=== PATIENT | female | born 1970 | race Caucasian/White ===

== ENCOUNTER → 2023-05-18 | Outpatient (CLI) | payer BC ==
--- NOTE | 2023-05-18 23:11 | MR ---
EXAMINATION TYPE: MR knee RT wo con DATE OF EXAM: 05/18/2023 COMPARISON: NONE HISTORY: Right knee pain and swelling after injury 4 days earlier, hx arthroscopic surgery. Internal derangement per order. TECHNIQUE: Multiplanar, multisequence images of the knee is performed without IV contrast. FINDINGS: MEDIAL MENISCUS: Horizontal signal posterior horn does not definitively extend to articular surface. LATERAL MENISCUS: Anterior and posterior horns are intact without tear. CRUCIATE LIGAMENTS: The anterior and posterior cruciate ligaments are intact and unremarkable. COLLATERAL LIGAMENTS: The medial collateral ligament and lateral collateral ligament complex are inta ct and unremarkable. EXTENSOR MECHANISM: Visualized quadriceps and patellar tendons are intact. EFFUSION: No significant suprapatellar joint effusion. POPLITEAL CYST: Moderate size leaking multiseptated popliteal/rush cyst measuring approximately 5.3 cm on axial sagittal image 10. TRICOMPARTMENT SPACES: Moderate tricompartment joint space loss and spurring. CARTILAGE: Significant chondral malacia patella with areas of full-thickness cartilaginous loss along the posterior aspect of the patellar pole greatest along the inferior medial portion. Early cartilag inous loss medial tibiofemoral compartment. BONE MARROW SIGNAL: A few tiny areas of increased T2 signal along the posterior patellar pole. OTHER: No additional significant abnormality is appreciated. IMPRESSION: 1. At least fairly moderate tricompartment degenerative changes as detailed above somewhat pronounced for patient's chronologic age. 2. Intrasubstance tear posterior horn of medial meniscus, no full-thickness meniscal tear is seen. 3. Moderate-sized leaking multiseptated popliteal cyst.
== END | disposition home or self-care (01) ==
LOC: RADMRIMAIN 10:14
PROVIDERS: ATTEND Family Medicine
DX: S83.241A Other tear of medial meniscus, current injury, right knee, initial encounter (principal); S89.91XA Unspecified injury of right lower leg, initial encounter; M17.11 Unilateral primary osteoarthritis, right knee; M71.21 Synovial cyst of popliteal space [Baker], right knee